=== PATIENT | female | born 1985 | race Caucasian/White ===

== ENCOUNTER 2017-06-04 02:52 | Emergency (ER) | payer SELFPAY ==
[2017-06-04 04:02] VITALS: BP 118/66
--- NOTE | 2017-06-04 08:49 | ER ---
DATE SEEN: 06/04/2017 CHIEF COMPLAINT: Chills. HISTORY OF PRESENT ILLNESS: This is a 32-year-old female who drove herself in after she woke up tonight feeling chilled and cold and was shaking uncontrollably to the point that the called the ambulance. After evaluation, she decided to drive herself in. Her symptoms include vague fatigue over the last week, nausea, and some dizziness. She complains of some heartburn, but no shortness of breath. PAST MEDICAL HISTORY: No active medical problems. ALLERGIES: No known allergies. SOCIAL HISTORY: Does not drink, smoke, or use drugs. PHYSICAL EXAMINATION: VITAL SIGNS: Normal. GENERAL: She is not in distress. HEENT: Negative. CHEST: Clear. CARDIOVASCULAR: Normal. MENTAL STATUS: Alert. LABORATORY DATA: CBC and CMP are normal. IMPRESSION: Anxiety attack. PLAN: We will discharge the patient home. Follow up kaelyn Saavedra#: [id number] DENI/YASMIN
== END 2017-06-04 04:00 | disposition home or self-care (01) ==
LOC: FB.ED 02:52
DX: F41.9 Anxiety disorder, unspecified (principal)
CPT/HCPCS: 36415; 80053; 85025; 93005; 99283

== ENCOUNTER 2019-06-21 07:12 | Day surgery (SDC) | payer MEDICAID ==
[2019-06-21] MEDS ORDERED: Midazolam 1 MG/ML 2 ML SDV IV ONE (07:13)
[2019-06-21] MEDS ORDERED: Propofol 200 MG/20 ML SDV IV ONE (07:13)
[2019-06-21] MEDS ORDERED: Sodium Chloride 0.9% 10 ML Syringe FLUSH PRN (07:15)
[2019-06-21] MEDS ORDERED: Lactated Ringers 1,000 ML IV SCH (07:15)
--- NOTE | 2019-06-21 09:12 | PCM.OPNOTE ---
- General Post-Op/Procedure Note Date of Surgery/Procedure: 06/21/19 Operative Procedure(s): c scope Findings: nl exam Pre Op Diagnosis: hx of llq abd pain. hematochezia Post-Op Diagnosis: nl exam Anesthesia Technique: MAC Primary Surgeon: Grupo Marie Anesthesia Provider: Olivia Heaton Pathology: none Complications: None Condition: Good Free Text/Narrative:: see dictation
[2019-06-21 12:07] VITALS: BP 92/49; PULSE 62
--- NOTE | 2019-06-21 15:39 | OR ---
DATE OF OPERATION: 06/21/2019 SURGEON: Grupo Marie MD PROCEDURE PERFORMED: Colonoscopy. PREOPERATIVE DIAGNOSIS: History of hematochezia and left lower quadrant abdominal pain. POSTOPERATIVE DIAGNOSIS: Normal colonoscopy. INDICATIONS FOR PROCEDURE: This is a 34-year-old white female who has had some left lower quadrant abdominal pain, which has been attributed to her history of endometriosis and previous pelvic surgeries. Noted to have some bleeding per rectum as well. She was offered and accepted colonoscopy. DESCRIPTION OF OPERATION: After an excellent IV sedation was administered, a digital rectal exam was performed. No marked abnormality was noted. Flexible colonoscope was inserted and advanced to the cecum. The prep was adequate. There were areas of the seed like material as well as some fluid where we will aspirate the bulk of it, however, towards the end of the case, there were several pools we were not able to aspirate due to the scoping clogged, however, no gross abnormalities were noted. Following findings were noted. Ascending colon, unremarkable. Transverse colon, unremarkable. Descending colon, unremarkable. Sigmoid and rectum, unremarkable. Colon was deflated, scope was removed. The patient tolerated the procedure well. /[id number] /MODL
== END 2019-06-21 10:02 | disposition home or self-care (01) ==
LOC: FB.SDS 07:12
PROVIDERS: ATTEND Surgery
DX: K92.1 Melena (principal); R10.32 Left lower quadrant pain; J45.909 Unspecified asthma, uncomplicated; F32.9 Major depressive disorder, single episode, unspecified; F41.1 Generalized anxiety disorder; Z91.018 Allergy to other foods; Z87.891 Personal history of nicotine dependence; Z79.1 Long term (current) use of non-steroidal anti-inflammatories (NSAID); Z79.899 Other long term (current) drug therapy
CPT/HCPCS: J2250; J2704; J7120